=== PATIENT | female | born 1960 | race Asian ===

== ENCOUNTER 2018-03-03 05:58 | Observation (INO) ==
[2018-03-03] MEDS ORDERED: Chlorhexidine Gluconate 2% 1 Pack (2 Cloths) TOPICAL ONE (06:28)
[2018-03-03] MEDS ORDERED: Metoprolol Tartrate 25 MG Tablet PO ONE (06:28)
[2018-03-03] MEDS ORDERED: Bupivacaine/Epinephrine Inj 0.25% 50 ML Vial ONE ×2 (06:58→08:47)
[2018-03-03] MEDS ORDERED: Sodium Chlor 0.9% Inj 500 ML IV.SIG SCH (07:00)
[2018-03-03] MEDS ORDERED: ceFAZolin 2 GM/NS 100 ML IV IV.SIG SCH ×2 (07:00)
[2018-03-03] MEDS ORDERED: Microfibrillar Collagen Hemostat 1 GM Packet TOPICAL ONE (07:01)
[2018-03-03] MEDS ORDERED: ceFAZolin 2 GM Premix Inj 2 GM/100 ML BAG IV.SIG ONE (07:23)
[2018-03-03] MEDS ORDERED: Phenylephrine/NS 1000 MCG/10ML Syringe IV.PUSH ONE (08:44)
[2018-03-03] MEDS ORDERED: Normosol-R pH 7.4 Inj 1,000 ML IV.CONT ONE (08:44)
[2018-03-03] MEDS ORDERED: Neostigmine Inj 5 MG/5 ML Syringe IV.PUSH ONE (08:44)
[2018-03-03] MEDS ORDERED: Glycopyrrolate Inj 1 MG/5 ML Syringe IV.PUSH ONE (08:44)
[2018-03-03] MEDS ORDERED: Ketorolac Inj 30 MG/ML (IVP) Vial IV.PUSH ONE (08:44)
[2018-03-03] MEDS ORDERED: Lidocaine PF 1% Inj 5 ML Syringe INFILTRATN ONE (08:44)
[2018-03-03] MEDS ORDERED: Naloxone Inj 0.4 MG/ML Vial IV.PUSH PRN (10:41)
[2018-03-03] MEDS ORDERED: HYDROmorphone PCA Inj 6 MG/30 ML PCA.VIAL PCA PRN (10:41)
[2018-03-03] MEDS ORDERED: Ibuprofen 600 MG Tablet PO PRN (10:41)
[2018-03-03] MEDS ORDERED: Zolpidem Tartrate 5 MG Tablet PO PRN (10:41)
[2018-03-03] MEDS ORDERED: HYDROmorphone PCA Inj 6 MG/30 ML PCA.VIAL PCA ONE (10:57)
[2018-03-03] MEDS ORDERED: fentaNYL Citrate Inj 100 MCG/2 ML Ampul ONE (11:04)
[2018-03-03] MEDS ORDERED: Morphine Inj 4 MG/ML Vial ONE (11:05)
--- NOTE | 2018-03-03 11:26 | MP ---
cc: Rosi Mae MD DATE OF OPERATION: 03/03/2018 PREOPERATIVE DIAGNOSES: Fibroid uterus, thickened endometrium cervical dysplasia, postmenopausal bleeding. POSTOPERATIVE DIAGNOSES: Fibroid uterus, thickened endometrium, cervical dysplasia, postmenopausal bleeding. PROCEDURE PERFORMED: Examination under anesthesia, laparoscopic-assisted vaginal hysterectomy, bilateral salpingo-oophorectomy, cystoscopy. SURGEON: Rosi Mae MD ANESTHESIA: General endotracheal anesthesia. ANESTHESIOLOGIST: Yovany Bowman MD FLUIDS: 1300 mL crystalloids. ESTIMATED BLOOD LOSS: 200 mL. URINE OUTPUT: 350 mL, clear yellow at the end of the procedure. FINDINGS: Uterus was approximately 12-14 weeks in size. At laparoscopy the tubes and ovaries were completely encased in adhesions, most likely due to endometriosis. DETAILS OF PROCEDURE: The patient was taken to the operating room where general anesthesia was found to be adequate. She was then prepped and draped in the normal sterile fashion in the dorsal lithotomy position. A Butterfield catheter was inserted into the urinary bladder using sterile technique. A weighted speculum was placed in the vagina. A single-tooth tenaculum applied to the anterior lip of the cervix. The cervix was dilated with Kiet dilators sizes 9 through 13. A suture was then placed on the anterior lip of the cervix and the tenaculum was removed. A medium VCare uterine manipulator was then placed through the cervix into the uterus. The balloon was inflated. The cups were positioned. The speculum was removed. The gloves were changed and attention was turned to the abdominal portion of the procedure. A 5 mm incision was made just above the umbilicus and a 5 mm trocar and camera were inserted into the abdominal cavity under direct visualization. The abdomen was insufflated with approximately 3.5 liters of CO2 gas. Two additional 5 mm trocars were placed in the right and left lower quadrants under direct visualization. The uterus was noted to be bulky and enlarged with fibroids difficult to maneuver. The round ligaments were transected bilaterally with the Harmonic scalpel. The bladder flap was gently dissected off of the anterior surface of the uterus and cervix using the Harmonic scalpel. An anterior fibroid subserosal was noted. The infundibulopelvic ligaments were transected bilaterally carefully due to the adhesions. This was done using the Harmonic scalpel. The tubes and ovaries were transected from the broad ligaments using the Harmonic scalpel. The remaining cardinal ligaments, broad ligaments, and uterine arteries were transected bilaterally using the Harmonic scalpel. The Teleport uterine manipulator was then used as a guide to incise the vagina circumferentially around the cervix with the Harmonic scalpel. The uterus was then delivered vaginally and sent to pathology along with the fallopian tubes and ovaries. The vaginal cuff was then closed with a running suture of 0 Vicryl. Hemostasis was assured. Second look laparoscopy was then performed and the pelvis was suctioned and irrigated and again, hemostasis was assured. The gas was allowed to escape. The instruments were removed. The trocars were removed. The skin incisions were closed with 4-0 Monocryl. The Butterfield catheter was used to instill approximately 250 mL of saline into the urinary bladder. The Butterfield catheter was removed. Cystoscopy was performed and urine was noted to be effluxing from both of the ureteral meatuses. No bladder injury was noted. The cystoscope was removed. The Butterfield catheter was replaced. The patient was awakened from anesthesia and transferred to recovery room in stable condition. The sponge, lap, needle, and instrument counts were correct. PATHOLOGY: Uterus, cervix, bilateral fallopian tubes, and ovaries. MD PILI Suresh/arielle , 11:03 AM , 11:11 AM
[2018-03-03] MEDS ORDERED: *Ondansetron Inj 4 MG/2 ML Vial PERIprocedural Use ONLY ONE (11:48)
[2018-03-03] MEDS: Docusate Sodium 100 MG Capsule PO SCH (21:57)
--- NOTE | 2018-03-04 07:47 | P.PNOB ---
Assessment and Plan (1) Fibroids Status: Acute (2) PMB (postmenopausal bleeding) Status: Acute (3) Cervical dysplasia Status: Acute (4) Abnormal findings on diagnostic imaging of other specified body structures Status: Acute - Postoperative Procedures Operation Date: 03/03/18 08:00 Actual Procedures Side Surgeon p LAPAROSCOPIC ASSISTED VAGINAL HYSTERECTOMY, BILATERAL S&O, CYSTOSCOPY Rosi Mae MD Postoperative day: 1 (discharge planning) Postoperative status: doing well Postoperative plan: routine post-op care - Time Spent With Patient Total time spent is greater than 50% in coordination of care (as documented) at patient's floor/unit and/or counseling patient: less than 15 minutes Subjective Interval history: no complaints, pain controlled, urine output good, cbc pending Subjective: pain is well controlled, patient is tolerating oral intake Physical Exam Vital signs: Temp Pulse Resp BP Pulse Ox 98.5 F 71 16 95/63 L 95 03/04/18 04:00 03/04/18 04:00 03/04/18 04:00 03/04/18 04:00 03/04/18 04:00 - Constitutional no acute distress - Routine Abdominal Exam Present: soft Comments: nontender, nondistended, incisions c/d/i - Routine Extremities Exam Comments: no calf tenderness - Urinary Catheter Management Indwelling Urethral Catheter Cath placed during this visit: yes, but has since been removed by the nurse Insertion date: 03/03/18 Removal date: 03/04/18 Results - Labs Labs: Laboratory Results - last 24 hr 03/03/18 07:23 Blood Type O Positive Blood Type Recheck Required Antibody Screen Negative
[2018-03-04 08:32] LABS: Baso % (Auto) 0.3 % (0.0-2.0); Eos % (Auto) 0.4 % (0.0-4.0); Hematocrit 31.1 % (35.0-46.0); Hemoglobin 10.5 gm/dL (11.6-15.3); Lymph # (Auto) 0.9 th/mm3 (1.0-4.8); Lymph % (Auto) 15.6 % (9.0-44.0); Mean Corpuscular HGB Conc 33.8 % (32.0-36.0); Mean Corpuscular Hemoglobin 29.5 pg (27.0-34.0); Mean Corpuscular Volume 87.3 fL (80.0-100.0); Mono # (Auto) 0.6 th/mm3 (0.0-0.9); Mono % (Auto) 10.6 % (0.0-8.0); Neut # (Auto) 4.1 th/mm3 (1.8-7.7); Neut % (Auto) 73.1 % (16.0-70.0); Platelet Count 135 th/mm3 (150-450); Red Blood Count 3.56 mil/mm3 (4.00-5.30); Red Cell Distribution Width 13.6 % (11.6-17.2); White Blood Count 5.7 th/mm3 (4.0-11.0)
[2018-03-04] MEDS: Docusate Sodium 100 MG Capsule PO SCH (10:46)
== END 2018-03-04 11:30 | disposition home or self-care (01) ==
LOC: HSDI 05:58 → HSDC 05:58 → H1EA 12:14
PROVIDERS: ADMIT Obstetrics & Gynecology; ATTEND Obstetrics & Gynecology